=== PATIENT | male | born 1965 | race Two or more races ===

== ENCOUNTER 2016-07-04 08:57 | Emergency (ER) | payer SELFPAY ==
[~2016-07-04] VITALS: Ht 170.2 cm; Wt 76.2 kg
[2016-07-04 09:04] VITALS: BP 133/69
[2016-07-04] MEDS ORDERED: diphenhydrAMINE HCL 25 MG CAPSULE ONE (09:28)
[2016-07-04] MEDS ORDERED: DIPHENHYDRAMINE HCL 12.5 MG/5 ML UDC PO ONE (09:30)
== END 2016-07-04 09:25 | disposition home or self-care (01) ==
LOC: ER 09:00
DX: H02.9 Unspecified disorder of eyelid (principal)
CPT/HCPCS: 99282; A4606; Q0163 ×2; Z7610

== ENCOUNTER 2016-11-25 22:22 | Emergency (ER) | payer MEDICAID ==
[~2016-11-25] VITALS: Ht 157.5 cm; Wt 101.2 kg
--- NOTE | 2016-11-25 23:15 | NUR ---
TO BED 3 AMBULATORY C/O DIZZINESS W/ GOMEZ, BILATERAL FLANK PAIN X5 DAYS, NAUSEA NO VOMITING. PT AAOX4 NO ACUTE DISTRESS NOTED, RESP EVEN AND UNLABORED. PUPILS PERRL, PT ABLE TO MOVE ALL EXTREMITIES WELL WITH BILATERAL EQUAL PROPOSAL ENGINEER. PENDING ER MD JOHNSON.
[2016-11-25 23:38] LABS: APPEARANCE,URINE CLEAR (CLEAR); BILIRUBIN,URINE NEGATIVE (NEGATIVE); BLOOD, URINE TRACE-INTA Ery/uL (NEGATIVE); COLOR,URINE YELLOW (YELLOW); KETONES,URINE NEGATIVE (NEGATIVE); LEUKOCYTE ESTERASE ,URINE NEGATIVE (NEGATIVE); NITRITE, URINE NEGATIVE (NEGATIVE); PROTEIN,URINE NEGATIVE (NEGATIVE); UGLUCOSE NEGATIVE (NEGATIVE); UROBILINOGEN,URINE 0.2 EU/dL (0.2)
[2016-11-25 23:42] LABS: BASOPHILS % (AUTO) 0.3 % (0.0-2.0); EOSINOPHILS % (AUTO) 0.4 % (0.0-6.0); HEMATOCRIT 44 % (39-51); HEMOGLOBIN 14.7 g/dL (13.5-17.5); LYMPHOCYTES # (AUTO) 1.5 /CMM (0.8-4.8); LYMPHOCYTES % (AUTO) 16.8 % (20.0-44.0); MEAN CORPUSCULAR HEMOGLOBIN 31 PG (26.0-33.0); MEAN CORPUSCULAR HGB CONC 34 g/dl (31.0-36.0); MEAN CORPUSCULAR VOLUME 91 fL (80-96); MONOCYTES # (AUTO) 0.9 /CMM (0.1-1.30); MONOCYTES % (AUTO) 9.4 % (2.0-12.0); NEUTROPHILS # (AUTO) 6.6 /CMM (1.8-8.9); NEUTROPHILS % (AUTO) 73.1 % (43.0-81.0); PLATELET COUNT (AUTO) 211 /CMM (150-450); RDW COEFFICIENT OF VARIATION 14.2 (11.5-15.0); RED BLOOD CELL COUNT(AUTO) 4.82 MIL/uL (4.5-6.0)
[2016-11-25 23:47] LABS: BACTERIA,URINE None seen /HPF (None Seen); RBC,URINE 0-2 /HPF (0-2); SQUAMOUS EPITHELIAL CELL,UR Rare /HPF (None Seen); WBC,URINE 0-2 /HPF (0-3)
--- NOTE | 2016-11-25 23:51 | NUR ---
PT TRANSPORTED TO RADIOLOGY FOR CT HEAD AND CT ABD/PELVIS.
[2016-11-25 23:53] LABS: CALCIUM, SERUM 8.3 mg/dL (8.5-10.1); CARBON DIOXIDE 26 mmol/L (21-32); CHLORIDE 106 mmol/L (98-107); CREATININE 1.3 mg/dL (0.6-1.3); GLUCOSE 102 mg/dL (74-106); SODIUM SERUM 141 mmol/L (136-145); UREA NITROGEN, BLOOD 20 mg/dL (7-18)
[2016-11-25 23:57] LABS: INR 0.95 (0.87-1.13); PROTHROMBIN TIME 10.1 SECS (9.5-12.7)
[2016-11-25 23:59] LABS: ALANINE AMINOTRANSFERASE 36 U/L (12-78); ALBUMIN 3.6 g/dL (3.4-5.0); ALKALINE PHOSPHATASE 66 U/L (46-116); ASPARTATE AMINOTRANSFERASE 18 U/L (15-37); BILIRUBIN,DIRECT 0.2 mg/dL (0.0-0.2); BILIRUBIN,TOTAL 1.5 mg/dL (0.2-1.0); TOTAL PROTEIN, SERUM 6.7 g/dL (6.4-8.2)
[2016-11-26] LABS: TROPONIN I < 0.017 ng/mL (0.00-0.056)
[2016-11-26] MEDS ORDERED: ONDANSETRON HCL/PF 4 MG/2 ML VIAL ONE (00:03)
--- NOTE | 2016-11-26 00:04 | NUR ---
PT BACK FROM RADIOLOGY. PENDING CT RESULTS.
[2016-11-26] MEDS: IV NS 0.9% 500 ML BAG IV ONE (00:07)
[2016-11-26] MEDS ORDERED: IV SET PRIMARY 1 EA INFUS.SET MC ONE (00:13)
[2016-11-26] MEDS ORDERED: IV NS 0.9% 500 ML IV ONE (00:13)
[2016-11-26] MEDS: ONDANSETRON HCL/PF 4 MG/2 ML VIAL IVP ONE (00:19)
--- NOTE | 2016-11-26 00:51 | NUR ---
IV removed. Catheter intact and site benign. Pressure and 4x4 applied to site. No bleeding noted. Patient discharged to home in stable condition. Written and verbal after care instructions given. Patient verbalizes understanding of instruction. ambulatory with a steady gait noted. pt aaox4 no acute distress noted. pt denies pain or discomfort at this time.
[2016-11-26 00:52] VITALS: BP 129/64
== END 2016-11-26 00:52 | disposition home or self-care (01) ==
LOC: ER 22:23
DX: R42 Dizziness and giddiness (principal); R10.9 Unspecified abdominal pain
CPT/HCPCS: 36415; 70450; 71010; 74176; 80048; 80076; 81001; 84484; 85025; 85730; 93005; 96374; 99285; A4606; J2405; J7040; Z7610; 81000-TC

== ENCOUNTER 2016-11-30 15:03 | Emergency (ER) | payer MEDICAID ==
[~2016-11-30] VITALS: Ht 175.3 cm; Wt 90.7 kg
--- NOTE | 2016-11-30 15:05 | NUR ---
PT TO ED ROOM 07. EPIGASTRIC PAIN X 8 DAYS. A/A/O. SUIDE RAISL UP. HOB ELEVATED. CONNECTED TO MONITOR. SEEN AND EVALUATED BY ED PROVIDER. CONNECTED TO MONIOTR.
[2016-11-30] MEDS ORDERED: LIDOCAINE VISCOUS 2% UD 15 ML UDC MM ONE (15:30)
[2016-11-30] MEDS ORDERED: BELLADONNA /PHENOBARB 5 ML UDC 5 ML UDC PO ONE (15:30)
[2016-11-30] MEDS ORDERED: ONDANSETRON 4 MG TAB.RAPDIS SL ONE (15:30)
[2016-11-30] MEDS ORDERED: MAG HYDROX/AL HYDROX/SIMETH 30 ML UDC PO ONE (15:30)
[2016-11-30] MEDS ORDERED: ONDANSETRON 4 MG TAB.RAPDIS ONE (15:34)
[2016-11-30] MEDS ORDERED: MAG HYDROX/AL HYDROX/SIMETH 30 ML UDC ONE (15:35)
[2016-11-30] MEDS ORDERED: LIDOCAINE VISCOUS 2% UD 15 ML UDC ONE (15:35)
[2016-11-30 15:45] LABS: BASOPHILS % (AUTO) 0.5 % (0.0-2.0); EOSINOPHILS % (AUTO) 0.7 % (0.0-6.0); HEMATOCRIT 45 % (39-51); HEMOGLOBIN 14.9 g/dL (13.5-17.5); LYMPHOCYTES # (AUTO) 1.2 /CMM (0.8-4.8); LYMPHOCYTES % (AUTO) 18.4 % (20.0-44.0); MEAN CORPUSCULAR HEMOGLOBIN 30 PG (26.0-33.0); MEAN CORPUSCULAR HGB CONC 33 g/dl (31.0-36.0); MEAN CORPUSCULAR VOLUME 90 fL (80-96); MONOCYTES # (AUTO) 0.5 /CMM (0.1-1.30); MONOCYTES % (AUTO) 8.4 % (2.0-12.0); NEUTROPHILS # (AUTO) 4.8 /CMM (1.8-8.9); PLATELET COUNT (AUTO) 207 /CMM (150-450); RDW COEFFICIENT OF VARIATION 13.5 (11.5-15.0); RED BLOOD CELL COUNT(AUTO) 4.99 MIL/uL (4.5-6.0); WHITE BLOOD COUNT (AUTO) 6.5 K/uL (4.3-11.0)
--- NOTE | 2016-11-30 15:57 | NUR ---
ELEXIR IS NOT AWAILABLE IN THE PIXIES AND NOT IN PHARMACY. DR MARLEY WAS MADE AWARE. OPK NOT TO ADMINISTER PER DR MARLEY.
[2016-11-30 16:00] LABS: ALANINE AMINOTRANSFERASE 38 U/L (12-78); ALBUMIN 3.8 g/dL (3.4-5.0); ALKALINE PHOSPHATASE 70 U/L (46-116); ASPARTATE AMINOTRANSFERASE 25 U/L (15-37); BILIRUBIN,DIRECT 0.2 mg/dL (0.0-0.2); BILIRUBIN,TOTAL 1.1 mg/dL (0.2-1.0); CARBON DIOXIDE 33 mmol/L (21-32); CHLORIDE 103 mmol/L (98-107); CREATININE 1.4 mg/dL (0.6-1.3); GLUCOSE 107 mg/dL (74-106); LIPASE 175 U/L (73-393); POTASSIUM 3.4 mmol/L (3.5-5.1); SODIUM SERUM 139 mmol/L (136-145); TOTAL PROTEIN, SERUM 7.2 g/dL (6.4-8.2); UREA NITROGEN, BLOOD 20 mg/dL (7-18)
[2016-11-30 16:02] LABS: TROPONIN I < 0.017 ng/mL (0.00-0.056)
[2016-11-30 16:40] VITALS: BP 124/65
--- NOTE | 2016-11-30 16:50 | NUR ---
Patient discharged to home in stable condition. Written and verbal after care instructions given. Patient verbalizes understanding of instruction.
== END 2016-11-30 16:52 | disposition home or self-care (01) ==
LOC: ER 15:04
DX: K21.9 Gastro-esophageal reflux disease without esophagitis (principal)
CPT/HCPCS: 36415; 80048; 80076; 83690; 84484; 85025; 93005; 99285; A4606; Q0162; Z7610

== ENCOUNTER 2017-05-19 19:54 | Emergency (ER) | payer SELFPAY ==
[~2017-05-19] VITALS: Ht 170.2 cm; Wt 93.0 kg
[2017-05-19] MEDS ORDERED: HYDROCODONE/APAP 10/325MG 1 EA TABLET ONE (20:49)
[2017-05-19] MEDS ORDERED: IBUPROFEN 400 MG TABLET ONE (20:49)
[2017-05-19 20:59] VITALS: BP 121/85
[2017-05-19] MEDS ORDERED: IBUPROFEN 400 MG TABLET PO ONE (21:00)
[2017-05-19] MEDS ORDERED: HYDROCODONE/APAP 10/325MG 1 EA TABLET PO ONE (21:00)
== END 2017-05-19 21:00 | disposition home or self-care (01) ==
LOC: ER 19:59
DX: M54.12 Radiculopathy, cervical region (principal)
CPT/HCPCS: 99283; A4606; Z7610

== ENCOUNTER 2017-08-15 19:47 | Emergency (ER) | payer SELFPAY ==
[~2017-08-15] VITALS: Ht 177.8 cm; Wt 86.2 kg
--- NOTE | 2017-08-15 20:06 | NUR ---
52 yo male bb self. patient is alert and oriented x 3, states he had an episode of weakness/ dizzy while driving where his vision began to blurr and had a near syncope. patient states it lasted a few seconds, then went away. patient came here for eval, no distress noted at this time, skin warm and dry, resp even and unlabored. awaiting orders from provider
[2017-08-15] MEDS ORDERED: ONDANSETRON 4 MG TAB.RAPDIS PO ONE (21:30)
[2017-08-15] MEDS ORDERED: IV NS 0.9% 1,000 ML BAG IV ONE (21:30)
[2017-08-15] MEDS ORDERED: MECLIZINE HCL 12.5 MG TABLET PO ONE (21:30)
--- NOTE | 2017-08-15 21:51 | NUR ---
PT TO CT
[2017-08-15 21:53] LABS: EOSINOPHILS % (AUTO) 0.1 % (0.0-6.0); HEMATOCRIT 45 % (39-51); HEMOGLOBIN 15.3 g/dL (13.5-17.5); LYMPHOCYTES # (AUTO) 0.8 /CMM (0.8-4.8); LYMPHOCYTES % (AUTO) 7.3 % (20.0-44.0); MEAN CORPUSCULAR HEMOGLOBIN 31 PG (26.0-33.0); MEAN CORPUSCULAR HGB CONC 34 g/dl (31.0-36.0); MEAN CORPUSCULAR VOLUME 91 fL (80-96); MONOCYTES # (AUTO) 0.1 /CMM (0.1-1.30); MONOCYTES % (AUTO) 0.9 % (2.0-12.0); NEUTROPHILS # (AUTO) 9.7 /CMM (1.8-8.9); NEUTROPHILS % (AUTO) 91.7 % (43.0-81.0); PLATELET COUNT (AUTO) 220 /CMM (150-450); RDW COEFFICIENT OF VARIATION 14.3 (11.5-15.0); RED BLOOD CELL COUNT(AUTO) 4.94 MIL/uL (4.5-6.0); WHITE BLOOD COUNT (AUTO) 10.6 K/uL (4.3-11.0)
[2017-08-15] MEDS ORDERED: ONDANSETRON 4 MG TAB.RAPDIS ONE (21:56)
[2017-08-15] MEDS ORDERED: MECLIZINE HCL 25 MG TABLET ONE (21:56)
--- NOTE | 2017-08-15 21:58 | NUR ---
PT OFF TO CT SCAN Addendum: 08/15/17 at 2158 by SAROJ DUPLICATE
[2017-08-15 22:02] LABS: CALCIUM, SERUM 9.5 mg/dL (8.5-10.1); CREATININE 1.3 mg/dL (0.6-1.3)
[2017-08-15] MEDS ORDERED: KETOROLAC TROMETHAMINE INJ 30 MG/ML VIAL IV ONE (22:30)
[2017-08-15] MEDS ORDERED: KETOROLAC TROMETHAMINE INJ 30 MG/ML VIAL ONE (22:39)
[2017-08-15 23:41] LABS: INR 0.92 (0.87-1.13)
[2017-08-15 23:43] LABS: ALANINE AMINOTRANSFERASE 31 U/L (12-78); ALBUMIN 4.1 g/dL (3.4-5.0); ALKALINE PHOSPHATASE 95 U/L (46-116); ASPARTATE AMINOTRANSFERASE 23 U/L (15-37); BILIRUBIN,DIRECT 0.1 mg/dL (0.0-0.2); BILIRUBIN,TOTAL 0.6 mg/dL (0.2-1.0)
[2017-08-15 23:45] LABS: TROPONIN I < 0.017 ng/mL (0.00-0.056)
[2017-08-16 01:30] VITALS: BP 140/89
== END 2017-08-16 01:31 | disposition home or self-care (01) ==
LOC: ER 19:49
DX: R51 Headache (principal); Z60.2 Problems related to living alone
CPT/HCPCS: 36415; 70450; 71045; 80048; 80076; 84484; 85025; 85652; 85730; 93005; 96361; 96374; 99285; A4606; J1885; J7030; J8597; Q0162; Z7610

== ENCOUNTER 2017-11-08 12:45 | Emergency (ER) | payer BC ==
[~2017-11-08] VITALS: Ht 162.6 cm; Wt 72.6 kg
--- NOTE | 2017-11-08 12:50 | NUR ---
PRESENTS TO ER STATING HE CHECKED HIS BP AT A PHARMACY 30 MINUTES AGO AND WAS TOLD HIS BP IS HIGH. PATIENT IS A/OX 4, BREATHING EVEN AND UNLABORED. NO SOB, NAD, VITALS STABLE, PATIENT NOT HYPERTENSIVE AT THIS TIME. SAFETY AND COMFORT MEASURES IN PLACE. AWAITING MD ORDERS.
--- NOTE | 2017-11-08 13:05 | NUR ---
IV STARTED ON RAC, 18G. BLOOD DRAWN AND SENT TO LAB.
[2017-11-08 13:19] LABS: BASOPHILS % (AUTO) 0.3 % (0.0-2.0); EOSINOPHILS % (AUTO) 0.9 % (0.0-6.0); HEMATOCRIT 46 % (39-51); HEMOGLOBIN 15.3 g/dL (13.5-17.5); LYMPHOCYTES # (AUTO) 1.5 /CMM (0.8-4.8); MEAN CORPUSCULAR HGB CONC 34 g/dl (31.0-36.0); MEAN CORPUSCULAR VOLUME 91 fL (80-96); MONOCYTES # (AUTO) 0.6 /CMM (0.1-1.30); MONOCYTES % (AUTO) 8.1 % (2.0-12.0); NEUTROPHILS # (AUTO) 5.4 /CMM (1.8-8.9); NEUTROPHILS % (AUTO) 70.7 % (43.0-81.0); PLATELET COUNT (AUTO) 226 /CMM (150-450); WHITE BLOOD COUNT (AUTO) 7.7 K/uL (4.3-11.0)
--- NOTE | 2017-11-08 13:20 | NUR ---
FLORIST SUPPLIES SALESPERSON AT BEDSIDE.
[2017-11-08 13:47] LABS: CALCIUM, SERUM 9.3 mg/dL (8.5-10.1); CARBON DIOXIDE 28 mmol/L (21-32); CHLORIDE 104 mmol/L (98-107); CREATININE 1.6 mg/dL (0.6-1.3); GLUCOSE 109 mg/dL (74-106); POTASSIUM 3.6 mmol/L (3.5-5.1); SODIUM SERUM 142 mmol/L (136-145); UREA NITROGEN, BLOOD 14 mg/dL (7-18)
[2017-11-08 13:56] LABS: TROPONIN I < 0.017 ng/mL (0.00-0.056)
[2017-11-08 14:22] VITALS: BP 121/68
--- NOTE | 2017-11-08 14:23 | NUR ---
IV removed. Catheter intact and site benign. Pressure and 4x4 applied to site. No bleeding noted. Patient discharged to home in stable condition. Written and verbal after care instructions given. Patient verbalizes understanding of instruction.
== END 2017-11-08 14:23 | disposition home or self-care (01) ==
LOC: ER 12:46
DX: I10 Essential (primary) hypertension (principal); R42 Dizziness and giddiness; H57.8 Other specified disorders of eye and adnexa; R10.13 Epigastric pain; Z60.2 Problems related to living alone
CPT/HCPCS: 36415; 71045-TC; 80048-TC; 84484-TC; 85025-TC; A4606; Z7610

== ENCOUNTER 2018-06-08 06:59 | Emergency (ER) | payer BC ==
[~2018-06-08] VITALS: Ht 160 cm; Wt 90.7 kg
--- NOTE | 2018-06-08 07:10 | NUR ---
PT BIB SELF C/O DIZZINESS AND NAUSEA SINCE THIS AM, PT IS AAOX4, NOT IN RESPIRATORY DISTRESS, V/S STABLE, KEPT RESTED AND COMFORTABLE.
--- NOTE | 2018-06-08 07:15 | NUR ---
PT LABS DRAWNED AND SENT TO LAB, EKG DONE BY TODDLER GUIDE. AWAITING RESULTS.
[2018-06-08] MEDS ORDERED: ONDANSETRON HCL/PF 4 MG/2 ML VIAL ONE (07:18)
[2018-06-08] MEDS ORDERED: ONDANSETRON HCL/PF 4 MG/2 ML VIAL IVP ONE (07:30)
[2018-06-08 07:36] LABS: BASOPHILS % (AUTO) 0.3 % (0.0-2.0); EOSINOPHILS % (AUTO) 0.5 % (0.0-6.0); HEMATOCRIT 45 % (39-51); HEMOGLOBIN 15.2 g/dL (13.5-17.5); LYMPHOCYTES # (AUTO) 1.4 /CMM (0.8-4.8); LYMPHOCYTES % (AUTO) 18.3 % (20.0-44.0); MEAN CORPUSCULAR HGB CONC 34 g/dl (31.0-36.0); MEAN CORPUSCULAR VOLUME 94 fL (80-96); MONOCYTES # (AUTO) 0.6 /CMM (0.1-1.30); MONOCYTES % (AUTO) 7.6 % (2.0-12.0); NEUTROPHILS # (AUTO) 5.5 /CMM (1.8-8.9); NEUTROPHILS % (AUTO) 73.3 % (43.0-81.0); PLATELET COUNT (AUTO) 194 /CMM (150-450); RED BLOOD CELL COUNT(AUTO) 4.83 MIL/uL (4.5-6.0); WHITE BLOOD COUNT (AUTO) 7.4 K/uL (4.3-11.0)
[2018-06-08 07:48] LABS: CALCIUM, SERUM 8.9 mg/dL (8.5-10.1); CARBON DIOXIDE 29 mmol/L (21-32); CHLORIDE 104 mmol/L (98-107); CREATININE 1.3 mg/dL (0.6-1.3); GLUCOSE 120 mg/dL (74-106); POTASSIUM 3.4 mmol/L (3.5-5.1); SODIUM SERUM 140 mmol/L (136-145); UREA NITROGEN, BLOOD 12 mg/dL (7-18)
[2018-06-08] MEDS ORDERED: oxyCODONE/APAP (5/325 MG) 1 UDTAB TABLET PO ONE (08:00)
[2018-06-08] MEDS ORDERED: AZITHROMYCIN 250 MG TABLET PO ONE (08:00)
[2018-06-08] MEDS ORDERED: predniSONE 20 MG TABLET PO ONE (08:00)
[2018-06-08 08:02] LABS: ALANINE AMINOTRANSFERASE 30 U/L (12-78); ALBUMIN 3.6 g/dL (3.4-5.0); ALKALINE PHOSPHATASE 76 U/L (46-116); ASPARTATE AMINOTRANSFERASE 19 U/L (15-37); BILIRUBIN,DIRECT 0.2 mg/dL (0.0-0.2); BILIRUBIN,TOTAL 1.3 mg/dL (0.2-1.0); TOTAL PROTEIN, SERUM 6.9 g/dL (6.4-8.2)
[2018-06-08] MEDS ORDERED: oxyCODONE/APAP (5/325 MG) 1 UDTAB TABLET ONE (08:07)
[2018-06-08] MEDS ORDERED: AZITHROMYCIN 250 MG TABLET ONE (08:07)
[2018-06-08] MEDS ORDERED: predniSONE 20 MG TABLET ONE (08:08)
--- NOTE | 2018-06-08 08:46 | NUR ---
TECH AT BED SIDE FOR US GALLBLADDER.
--- NOTE | 2018-06-08 11:45 | NUR ---
FOR REPEAT EKG AND TROPONIN. AWITING RESULT.
[2018-06-08 12:34] VITALS: BP 127/84
== END 2018-06-08 12:34 | disposition home or self-care (01) ==
LOC: ER 07:00
DX: R42 Dizziness and giddiness (principal); R10.11 Right upper quadrant pain; E78.00 Pure hypercholesterolemia, unspecified; Z98.890 Other specified postprocedural states; Z60.2 Problems related to living alone
CPT/HCPCS: 36415; 71045; 76705; 80048; 80076; 83690; 84484 ×2; 85025; 85730; 93005 ×2; 96374; 99284; A4606; J2405; J7512; Z7610

== ENCOUNTER 2018-06-21 09:56 | Emergency (ER) | payer SELFPAY ==
[~2018-06-21] VITALS: Ht 172.7 cm; Wt 90.7 kg
--- NOTE | 2018-06-21 10:15 | NUR ---
BIB SELF W C/O ABDOMINAL PAIN, "STARTED LAST NIGHT AT [facility] TO BACK, AND NAUSEA". TO ER BED 11, HOOKED TO MONITOR, CHANGED TO GOWN, AWAITING MD JOHNSON
[2018-06-21 11:26] LABS: BASOPHILS % (AUTO) 0.3 % (0.0-2.0); EOSINOPHILS % (AUTO) 0.4 % (0.0-6.0); HEMATOCRIT 47 % (39-51); HEMOGLOBIN 16.1 g/dL (13.5-17.5); LYMPHOCYTES # (AUTO) 0.5 /CMM (0.8-4.8); LYMPHOCYTES % (AUTO) 6.5 % (20.0-44.0); MEAN CORPUSCULAR HGB CONC 34 g/dl (31.0-36.0); MEAN CORPUSCULAR VOLUME 94 fL (80-96); MONOCYTES # (AUTO) 0.8 /CMM (0.1-1.30); MONOCYTES % (AUTO) 9.7 % (2.0-12.0); NEUTROPHILS # (AUTO) 6.8 /CMM (1.8-8.9); NEUTROPHILS % (AUTO) 83.1 % (43.0-81.0); PLATELET COUNT (AUTO) 162 /CMM (150-450); RED BLOOD CELL COUNT(AUTO) 5.06 MIL/uL (4.5-6.0); WHITE BLOOD COUNT (AUTO) 8.2 K/uL (4.3-11.0)
[2018-06-21] MEDS ORDERED: ONDANSETRON HCL/PF 4 MG/2 ML VIAL IVP ONE (11:30)
[2018-06-21] MEDS ORDERED: HYDROMORPHONE INJ 2 MG/ML DISP.SYRIN IV ONE (11:30)
[2018-06-21] MEDS ORDERED: IV NS 0.9% 1,000 ML BAG IV ONE (11:30)
[2018-06-21 11:35] LABS: CALCIUM, SERUM 9.3 mg/dL (8.5-10.1); CREATININE 1.3 mg/dL (0.6-1.3); POTASSIUM 3.8 mmol/L (3.5-5.1)
[2018-06-21 11:41] LABS: ALBUMIN 3.8 g/dL (3.4-5.0); BILIRUBIN,DIRECT 0.2 mg/dL (0.0-0.2); BILIRUBIN,TOTAL 1.1 mg/dL (0.2-1.0); TOTAL PROTEIN, SERUM 7.3 g/dL (6.4-8.2)
[2018-06-21] MEDS ORDERED: ONDANSETRON HCL/PF 4 MG/2 ML VIAL ONE (11:41)
[2018-06-21] MEDS ORDERED: HYDROMORPHONE 1 MG/1 ML DISP.SYRIN ONE (11:42)
--- NOTE | 2018-06-21 12:30 | NUR ---
PATIENT TRANSPORTED FOR CT.
[2018-06-21] MEDS ORDERED: CT SWABBABLE VALVE TRANS SET 1 EA INFUS.SET MC ONE (12:31)
[2018-06-21] MEDS ORDERED: IOHEXOL-300 100 ML VIAL IV ONE (12:31)
[2018-06-21] MEDS ORDERED: IV NS 0.9% 250 ML IV ONE (12:32)
[2018-06-21] MEDS ORDERED: ACETAMINOPHEN ES 500 MG TABLET PO ONE (13:00)
[2018-06-21] MEDS ORDERED: ACETAMINOPHEN ES 500 MG TABLET ONE (13:03)
--- NOTE | 2018-06-21 13:29 | NUR ---
IV removed. Catheter intact and site benign. Pressure and 4x4 applied to site. No bleeding noted.Patient discharged to home in stable condition. Written and verbal after care instructions given. Patient verbalizes understanding of instruction.
[2018-06-21 13:37] VITALS: BP 128/86
== END 2018-06-21 13:38 | disposition home or self-care (01) ==
LOC: ER 09:59
DX: K29.70 Gastritis, unspecified, without bleeding (principal); E78.00 Pure hypercholesterolemia, unspecified; R00.0 Tachycardia, unspecified; Z98.890 Other specified postprocedural states; Z60.2 Problems related to living alone
CPT/HCPCS: 74177; 80048; 80076; 83690; 85025; 85730; 96361; 96374; 96375; 99284; J1170; J2405; J7030; J7050; Q9967; Z7610; 36415

== ENCOUNTER 2019-02-13 13:38 | Emergency (ER) | payer MEDICAID ==
[~2019-02-13] VITALS: Ht 167.6 cm; Wt 94.3 kg
[2019-02-13 13:54] VITALS: BP 128/78
== END 2019-02-13 14:31 | disposition home or self-care (01) ==
LOC: ER 13:38
DX: H00.014 Hordeolum externum left upper eyelid (principal); E78.00 Pure hypercholesterolemia, unspecified; Z98.890 Other specified postprocedural states; Z60.2 Problems related to living alone

== ENCOUNTER 2019-03-24 16:41 | Emergency (ER) | payer MEDICAID ==
[~2019-03-24] VITALS: Ht 160 cm; Wt 97.5 kg
--- NOTE | 2019-03-24 18:18 | NUR ---
NURSING SUP GAVE BED 214B.
--- NOTE | 2019-03-25 00:07 | NUR ---
PT BIBS. C/O "HAVING LOWER EXT PAIN" VSS. AOX4. -SOB NOTED.
[2019-03-25] MEDS ORDERED: IBUPROFEN 600 MG TABLET PO ONE ×2 (00:42→01:00)
[2019-03-25] MEDS ORDERED: MECLIZINE HCL 25 MG TABLET ONE (01:45)
[2019-03-25 01:52] LABS: BASOPHILS # (AUTO) 0.1 /CMM (0.0-0.2); BASOPHILS % (AUTO) 0.7 % (0.0-2.0); EOSINOPHILS % (AUTO) 0.3 % (0.0-6.0); HEMATOCRIT 46 % (39-51); HEMOGLOBIN 15.2 g/dL (13.5-17.5); LYMPHOCYTES # (AUTO) 1.7 /CMM (0.8-4.8); LYMPHOCYTES % (AUTO) 17.2 % (20.0-44.0); MEAN CORPUSCULAR HGB CONC 33 g/dl (31.0-36.0); MEAN CORPUSCULAR VOLUME 93 fL (80-96); MONOCYTES # (AUTO) 0.8 /CMM (0.1-1.30); MONOCYTES % (AUTO) 8.4 % (2.0-12.0); NEUTROPHILS # (AUTO) 7.2 /CMM (1.8-8.9); NEUTROPHILS % (AUTO) 73.4 % (43.0-81.0); PLATELET COUNT (AUTO) 208 /CMM (150-450); RED BLOOD CELL COUNT(AUTO) 4.92 MIL/uL (4.5-6.0); WHITE BLOOD COUNT (AUTO) 9.9 K/uL (4.3-11.0)
[2019-03-25] MEDS ORDERED: IV NS 0.9% 500 ML BAG IV ONE (02:00)
[2019-03-25] MEDS ORDERED: MECLIZINE HCL 12.5 MG TABLET PO ONE (02:00)
[2019-03-25 02:07] LABS: ALBUMIN 4.1 g/dL (3.4-5.0); BILIRUBIN,DIRECT 0.2 mg/dL (0.0-0.2); BILIRUBIN,TOTAL 0.9 mg/dL (0.2-1.0); CALCIUM, SERUM 9.2 mg/dL (8.5-10.1); CREATININE 1.3 mg/dL (0.6-1.3); POTASSIUM 3.6 mmol/L (3.5-5.1); TOTAL PROTEIN, SERUM 7.6 g/dL (6.4-8.2)
[2019-03-25 02:29] LABS: APPEARANCE,URINE Clear (CLEAR); BILIRUBIN,URINE Negative (NEGATIVE); BLOOD, URINE Trace-intact Ery/uL (NEGATIVE); COLOR,URINE Yellow (YELLOW); KETONES,URINE Negative (NEGATIVE); LEUKOCYTE ESTERASE ,URINE Negative (NEGATIVE); NITRITE, URINE Negative (NEGATIVE); PH,URINE 5.5 (5.0-8.0); PROTEIN,URINE 30 mg/dl (NEGATIVE); UGLUCOSE Negative (NEGATIVE); UROBILINOGEN,URINE 0.2 EU/dL (0.2)
[2019-03-25 03:08] LABS: BACTERIA,URINE RARE /HPF (None Seen); RBC,URINE 0-2 /HPF (0-2); SQUAMOUS EPITHELIAL CELL,UR RARE /HPF (None Seen); WBC,URINE 0-2 /HPF (0-3)
[2019-03-25 03:19] VITALS: BP 122/81
== END 2019-03-25 03:19 | disposition home or self-care (01) ==
LOC: ER 16:53
DX: R42 Dizziness and giddiness (principal); R51 Headache; M17.12 Unilateral primary osteoarthritis, left knee; E78.00 Pure hypercholesterolemia, unspecified; Z98.890 Other specified postprocedural states; Z60.2 Problems related to living alone
CPT/HCPCS: 36415; 70450; 73564; 80048; 80076; 81001; 85025; 99284; J7040; J8597; 81000-TC